=== PATIENT | male | born 1995 | race Caucasian/White ===

== ENCOUNTER 2022-11-21 15:58 | Emergency (ER) | payer SELFPAY ==
[2022-11-21 16:11] VITALS: BP 137/103; PULSE 103; RESP 14; TEMP 36.8; O2SAT 96
--- NOTE | 2022-11-21 16:34 | W.ED.GENADLT ---
HPI - General Adult General: Chief complaint: General Medical Stated complaint: left side numbness Time Seen by Provider: 11/21/22 16:27 Source: patient Mode of arrival: ambulatory Limitations: no limitations History of Present Illness: Patient is a very nice 27-year-old male who presents to ED today with a complaint of left-sided eye and mouth drooping. He states symptoms started approximately 2 days ago and remembers having a sharp pain in his left ear. He states he noticed his left eye began draining and he was having trouble smoking a cigarette secondary to the mouth drooping. Patient denies a headache. He denies any numbness, tingling, weakness to his extremities. He denies aphasia. No problems with ambulation. He does not complain of any lightheadedness or dizziness. Onset (ago): day(s) Associated symptoms: Deny chest pain, confusion, dyspnea, headache(s), malaise or rash Treatments prior to arrival: none Review of Systems Const: Denies: fever(s), chills, body aches, fatigue or malaise Eyes: Reports: other (reports trouble closing L eyelid); Denies: change in vision, blurry vision, photophobia, floaters or seeing flashes ENMT: Reports: ear or mastoid pain; Denies: throat pain, odynophagia, nasal discharge, nasal congestion, epistaxis, post nasal drip or sinus pain Card: Denies: chest pain Resp: Denies: dyspnea GI: Denies: abdominal pain Musc: Denies: neck pain, back pain, extremity pain or joint pain Skin/Breast: Denies: rash Neuro: Denies: headache(s), numbness in extremities, weakness in extremities, lack of coordination, difficulty walking, frequent falls, dizziness, confusion, behavioral changes, Slurred speech present, difficulty communicating thoughts, seizure-like activity or involuntary movements [facility] ED PFSH: Medical History Psychiatric care Physical Exam Const: COMMON NORMALS: no acute distress, patient oriented x3, no limitations, alert and well nourished GENERAL APPEARANCE: cooperative ORIENTATION/CONSCIOUSNESS: Yes awake, Yes oriented to person, Yes oriented to place and Yes oriented to time HENMT: COMMON NORMALS: normocephalic, atraumatic, hearing grossly normal bilaterally, external ears normal, EAC's normal, TM's normal bilaterally (other than chronic TM scarring from previous ear infections), Normal external nose present, Normal nasal mucous membranes and turbinates present, oropharynx normal and gingiva normal HEAD & SCALP: normal to inspection, normocephalic and atraumatic FACE & SINUS: Flattened naso-labial fold present and other (facial asymmetry-see below) NOSE: Normal external nose present, Normal nasal mucous membranes and turbinates present and No nasal discharge present EXTERNAL EAR: Yes external ears normal EXTERNAL AUDITORY CANAL: EAC's normal TYMPANIC MEMBRANE: TM's normal bilaterally (other than chronic TM scarring from previous ear infections) MOUTH: Normal oral and palatal mucosa present and tongue normal THROAT: posterior oropharynx normal, tonsils normal and uvula midline Eye: COMMON NORMALS: Equal, round and reactive pupils present and EOMs intact bilaterally GENERAL EYE: normal light reflex PUPIL: Yes Equal, round and reactive pupils present DIRECT OPHTHALMOSCOPY: Yes normal light reflex Neck/C-Spine: COMMON NORMALS: full ROM, no lymphadenopathy and no meningeal signs GENERAL: Yes normal visual inspection Resp: COMMON NORMALS: normal respiratory effort and clear to auscultation bilaterally AUSCULTATION: clear to auscultation bilaterally Cardio: COMMON NORMALS: regular rate and regular rhythm RATE: regular rate RHYTHM: regular rhythm Neuro: ROMULO COMA SCALE: document [facility] findings [place] coma scale eye opening: Spontaneous [place] coma scale verbal response: Orientated Romulo coma scale motor response: Obey commands [place] coma scale total score: 15 COMMON NORMALS: patient oriented x3, CN's II-XII intact bilaterally (no CN deficits other than VII), moves all extremities, no focal motor deficits, no sensory deficits noted and gait normal SENSORIUM/ORIENTATION: Yes alert, Yes oriented to person, Yes oriented to place and Yes oriented to time MENINGEAL SIGNS: Yes no meningeal signs CRANIAL NERVES: Yes CN normal except as noted and Yes CN VII (facial) Laterality: left CN VII left: flattened naso-labial fold, unable to raise eyebrow(s), weak closing of eye(s) and asymmetrical smile COORDINATION/BALANCE: [id number] test normal SPEECH: speech normal GAIT: Yes Normal gait present MOTOR EXAM: 5/5 motor strength present throughout COORDINATION: [id number] test normal Course Vital Signs: Vital signs: Vital Signs Temperature 98.2 F 11/21/22 16:11 Pulse Rate 103 H 11/21/22 16:11 Respiratory Rate 14 11/21/22 16:11 Blood Pressure 137/103 11/21/22 16:11 Pulse Oximetry 96 11/21/22 16:11 Oxygen Delivery Me thod 11/21/22 16:11 MDM - General Adult Medical Decision Making On exam 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 No other neurologic deficits noted. His prodrome of ear pain can often be seen with his diagnosis as well. Will place on high dose steroid taper and will have him follow up with PCP in one week for re-evaluation. Discharge Plan Discharge Patient Disposition: Home Clinical Impression: Connor's palsy Condition: Stable Prescriptions: New prednisone 10 mg tablet 10 mg PO DAILY 10 Days Qty: 45 0RF Rx Instructions: 6 tabs on days 1-5, 5 tabs on day 6, 4 tabs on day 7, 3 tabs on day 8, 2 tabs on day 9, 1 tab on day 10 Discharge Orders: Discharge ED (Routine); Ordered 11/21/22 Ordered By: Daiana Ramirez Patient Instructions: Connor Palsy (ED) Coding Level of Care Code ED [employer] for Irma Luna
--- NOTE | 2022-11-22 09:38 | DCPLANNER ---
manager had message to speak with patient about getting established with a primary care physician. Patient stated that he wanted to wait until he gets his insurance at work before he gets established with a provider. Patient stated that he would call adult protective caseworker when he wants to get established with a physician.
== END 2022-11-21 17:12 | disposition home or self-care (01) ==
PROVIDERS: Emergency Provider Physician Assistant
DX: G51.0 Bell's palsy (principal)
CPT/HCPCS: 99283